=== PATIENT | male | born 1950 | race Caucasian/White ===

== ENCOUNTER 2024-07-06 12:55 | Observation (INO) | payer OTHER, MEDICARE ==
[2024-07-06 13:07] LABS: BASOPHILS ABSOLUTE AUTO 0.05 K/uL (0.00-0.10); BASOPHILS PERCENT AUTO 0.7 % (0.1-1.3); EOSINOPHILS PERCENT AUTO 2.8 % (0.0-5.4); HEMATOCRIT 39.5 % (38.4-49.7); HEMOGLOBIN 13.9 g/dL (12.9-16.9); IMMATURE GRAN ABSOLUTE AUTO 0.05 K/uL (0.00-0.23); IMMATURE GRAN PERCENT AUTO 0.7 % (0.0-0.7); LYMPHOCYTES ABSOLUTE AUTO 1.86 K/uL (0.8-3.3); LYMPHOCYTES PERCENT AUTO 25.7 % (11.4-47.7); MEAN CORPUSCULAR HEMOGLOBIN 29.8 pg (31.6-35.5); MEAN CORPUSCULAR HGB CONC 35.2 g/dL (31.6-35.5); MEAN CORPUSCULAR VOLUME 84.6 fL (81.4-99.0); MONOCYTES ABSOLUTE AUTO 0.68 K/uL (0.20-0.90); MONOCYTES PERCENT AUTO 9.4 % (3.3-12.6); NEUTROPHILS ABSOLUTE AUTO 4.39 K/uL (1.0-7.6); NEUTROPHILS PERCENT AUTO 60.7 % (40.0-78.1); PLATELET COUNT,PLT 204 K/uL (130-375); RED BLOOD CELL COUNT 4.67 M/uL (4.14-5.76); WHITE BLOOD CELL COUNT,WBC 7.2 K/uL (3.2-11.0)
[2024-07-06 13:20] LABS: ANION GAP 12.4 mmol/L (5.0-14.0); BLOOD UREA NITROGEN,BUN 19 mg/dL (7-18); CALCIUM 8.6 mg/dL (8.5-10.1); CARBON DIOXIDE,CO2 27 mmol/L (21-32); CHLORIDE,CL 106 mmol/L (100-108); ESTIMATED GFR 78 mL/min (>60); GLUCOSE RANDOM 185 mg/dL (74-106); POTASSIUM,K 3.4 mmol/L (3.6-5.2); SODIUM,NA 142 mmol/L (140-148)
[2024-07-06] MEDS: Sodium Chloride 0.9% 80 ML IV SCH (14:04)
[2024-07-06] MEDS: Sodium Chloride 0.9% 10 ML Syringe FLUSH ONE (14:04)
[2024-07-06] MEDS: Iopamidol 612 MG/ML 100 ML Bottle IV SCH (14:05)
[2024-07-06] MEDS: Diphtheria,Pertussis(Acell),Tetanus Vaccine 0.5 ML Syringe IM ONE (16:13)
[2024-07-06] MEDS: HYDROmorphone 1 MG/ML Syringe IVPUSH ONE (16:59)
[2024-07-06] MEDS ORDERED: Acetaminophen 325 MG Tab PO PRN (17:47)
[2024-07-06] MEDS ORDERED: Morphine 2 MG/ML SYRINGE IVPUSH PRN (17:47)
[2024-07-06] MEDS ORDERED: Magnesium Hydroxide 400 MG/5 ML Susp 30 ML Cup PO PRN (17:47)
[2024-07-06] MEDS ORDERED: LORazepam 2 MG/ML SDV IVPUSH PRN (17:47)
[2024-07-06] MEDS ORDERED: Sennosides/Docusate Sodium 50-8.6 MG Tab PO PRN (17:47)
[2024-07-06] MEDS ORDERED: Ibuprofen 600 MG Tab PO PRN (17:47)
[2024-07-06] MEDS ORDERED: Ondansetron 4 MG/2 ML SDV IV PRN (17:47)
[2024-07-06] MEDS ORDERED: Ondansetron 4 MG Tab.DIS PO PRN (17:47)
[2024-07-06] MEDS ORDERED: Acetaminophen/HYDROcodone 325-5 MG Tab PO PRN (17:47)
[2024-07-06] MEDS: Acetaminophen/Codeine 300-30 MG Tab PO PRN (18:26)
[2024-07-06] MEDS: Sodium Chloride 0.9% 1,000 ML IV SCH (20:13)
[2024-07-06] MEDS ORDERED: Benzocaine/Cetylpyridinium/Menthol Lozenge MUCMEM PRN (22:38)
[2024-07-07 05:19] LABS: BASOPHILS ABSOLUTE AUTO 0.03 K/uL (0.00-0.10); BASOPHILS PERCENT AUTO 0.3 % (0.1-1.3); EOSINOPHILS ABSOLUTE AUTO 0.08 K/uL (0.00-0.40); EOSINOPHILS PERCENT AUTO 0.8 % (0.0-5.4); HEMATOCRIT 37.9 % (38.4-49.7); HEMOGLOBIN 13.4 g/dL (12.9-16.9); IMMATURE GRAN ABSOLUTE AUTO 0.03 K/uL (0.00-0.23); IMMATURE GRAN PERCENT AUTO 0.3 % (0.0-0.7); LYMPHOCYTES ABSOLUTE AUTO 1.19 K/uL (0.8-3.3); LYMPHOCYTES PERCENT AUTO 12.3 % (11.4-47.7); MEAN CORPUSCULAR HEMOGLOBIN 29.9 pg (31.6-35.5); MEAN CORPUSCULAR HGB CONC 35.4 g/dL (31.6-35.5); MEAN CORPUSCULAR VOLUME 84.6 fL (81.4-99.0); MONOCYTES ABSOLUTE AUTO 1.11 K/uL (0.20-0.90); MONOCYTES PERCENT AUTO 11.5 % (3.3-12.6); NEUTROPHILS ABSOLUTE AUTO 7.23 K/uL (1.0-7.6); NEUTROPHILS PERCENT AUTO 74.8 % (40.0-78.1); PLATELET COUNT,PLT 177 K/uL (130-375); RED BLOOD CELL COUNT 4.48 M/uL (4.14-5.76); WHITE BLOOD CELL COUNT,WBC 9.7 K/uL (3.2-11.0)
[2024-07-07 05:42] LABS: A/G RATIO 0.9 (1.2-2.2); ALANINE AMINOTRANSFERASE,ALT 51 U/L (12-78); ALBUMIN 3.2 g/dL (3.4-5.0); ALKALINE PHOSPHATASE 95 U/L (46-116); ANION GAP 7.2 mmol/L (5.0-14.0); ASPARTATE AMNIOTRANSFERASE,AST 32 U/L (15-37); BILIRUBIN TOTAL 0.8 mg/dL (0.2-1.0); BLOOD UREA NITROGEN,BUN 16 mg/dL (7-18); CALCIUM 8.9 mg/dL (8.5-10.1); CARBON DIOXIDE,CO2 29 mmol/L (21-32); CHLORIDE,CL 105 mmol/L (100-108); CREATINE KINASE,CK 310 U/L (39-308); CREATININE 0.9 mg/dL (0.8-1.3); ESTIMATED GFR 89 mL/min (>60); GLUCOSE RANDOM 130 mg/dL (74-106); POTASSIUM,K 3.7 mmol/L (3.6-5.2); PROTEIN TOTAL,TP 6.7 g/dL (6.4-8.2); SODIUM,NA 141 mmol/L (140-148); TROPONIN I HIGH SENSITIVITY 11.3 pg/mL (<=60.3)
[2024-07-07] MEDS: Losartan 50 MG Tab PO SCH (11:28)
[2024-07-07] MEDS: atorvaSTATin 10 MG Tab PO SCH (11:28)
[2024-07-07] MEDS: Hydrochlorothiazide 25 MG Tab PO SCH (11:28)
[2024-07-07] MEDS: amLODIPine 5 MG Tab PO SCH (11:29)
== END 2024-07-07 12:20 | disposition home or self-care (01) ==
LOC: JP.ED 12:55 → JP.MS 17:29
PROVIDERS: ADMIT Hospitalist; ATTEND Internal Medicine
DX: S22.22XA Fracture of body of sternum, initial encounter for closed fracture (principal); S80.12XA Contusion of left lower leg, initial encounter; I10 Essential (primary) hypertension; E78.00 Pure hypercholesterolemia, unspecified; Z79.899 Other long term (current) drug therapy; V89.2XXA Person injured in unspecified motor-vehicle accident, traffic, initial encounter
CPT/HCPCS: 36415; 70450; 71260; 72125; 74177; 76377; 80048; 80053; 82550; 83605; 84484; 85025; 90471; 90715; 93005; 97161; 99223; 99238; 99285; A9270; G0378; J3490; J7030; Q9967; 93010